=== PATIENT | male | born 1935 | race Caucasian/White ===

== ENCOUNTER 2016-12-09 13:58 | Outpatient (CLI) | payer MEDICARE, OTHER ==
[2016-12-09 16:00] LABS: HEMOGLOBIN A1C 0.54 g/dL
== END 2016-12-09 23:59 | disposition home or self-care (01) ==
LOC: LAB.R 13:58
PROVIDERS: ATTEND Family Medicine
DX: E11.9 Type 2 diabetes mellitus without complications (principal)
CPT/HCPCS: 83036

== ENCOUNTER 2017-07-28 11:43 | Outpatient (CLI) | payer MEDICARE, OTHER ==
--- NOTE | 2017-07-28 18:39 | CONSULTATION NOTE ---
Palliative Care Consultation - Referral Referring Provider: Dr. Samayoa Time of Visit: [id number] Referral setting: [facility] [place] Referral Reason: Goals of Care/Met. Lung cancer - Information Sources Records reviewed: RN notes reviewed, Previous records reviewed History/Review of Systems obtained from: Patient, Family ( Judith Walter present ) Exam limitations: Clinical condition (patient with short term memory issues; but able to participate in conversation) - History of Present Illness Brief History of Present Illness: This is a robert 82-year-old gentleman with metastatic colon cancer involving the liver and the lungs. He was diagnosed in August 2015, after undergoing a colonoscopy for rectal bleeding noted in the fall 2014. He did receive surgery for an ascending colon mass, and has been on chemotherapy. He was also treated with Y90 to the right hepatic lobe in April 2017. Unfortunately his last CT scan shows disease progression both in the lungs, and suspected progression in the liver. He does present with some abdominal distention, and some increased lower extremity edema, suspected attributed to his liver metastasis. He is on Coumadin therapy for a left arm DVT diagnosed in 05/2016, and his warfarin today is on hold because of high INR. He has had increased weakness, difficulty tolerating activity, increased shortness of breath with activity as well. Reports a cough, but of clear phlegm , he denies any fever or chills though his white count has come back today at 19.5. There is some increase in his cough and he does have some diminished breath sounds in his right lower lobe. He did receive his new chemotherapy regimen, is her oral pills, after reading the side effects and also given his current decline, patient is weighing benefits and burdens of proceeding with treatment. Judith Walter is present at the visit, she is quite anxious as far as his impending decline, and navigating the landscape with his 7 children Medical/Surgical History - Past Medical History Cardiovascular: reports: Hypertension, High cholesterol, Deep vein thrombosis ( left upper arm), Other (has portacath) Respiratory: reports: Shortness of breath, Other (pulmonary mets) Neuro: reports: None Endocrine/Autoimmune: reports: Type 2 diabetes GI: reports: Other (colon cancer) : reports: Benign prostate hypertrophy HEENT: reports: None Psych: reports: Depression Musculoskeletal: reports: Fatigue Derm: reports: None MRSA Hx?: No - Past Surgical History General: reports: Bowel surgery (colon cancer), Colonoscopy, Other (Korey-Cath placement) - Substance History Use: Uses substance without health or social issues: Tobacco (former smoker), Alcohol (none) Social History - Living Situation Living arrangement: At home Living Situation: With spouse/s.o. Support System: Patient lives with his Judith Walter, they have been for 36 years. She has 1 daughter, and he has 7 children with multiple grandchildren and great- grandchildren. 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 He is to be a avid fisherman and Danny. Family History - Family History Family History: Mother: (father aneurysm age 51;mother of old age), CAD, Father: , Sister: , Brother: Family History Comment/Other: sister of breast cancer; another sister of complications from diabetes ; brother and sister of leukemia, borhter of CHF; has one sister alive Medications/Allergies - Medications Home Medications: Ambulatory Orders Medication Instructions Recorded Confirmed Insulin Glargine,Hum.rec.anlog 10 units SQ DAILY 09/01/15 07/29/17 [Lantus Solostar] Chlorpheniramine Maleate 4 mg PO ONCE PRN 10/13/15 07/15/17 [Chlorhist] LORazepam [Ativan] 0.5 mg PO Q6H PRN 10/13/15 07/29/17 Ondansetron [Ondansetron Odt] 4 mg PO Q4HR PRN 10/13/15 07/29/17 Prochlorperazine Maleate 10 mg PO Q6HR PRN 10/13/15 07/29/17 [Compazine] Escitalopram [Lexapro] 10 mg PO DAILY 01/16/16 07/29/17 Lidocaine HCl [Lidocaine HCl 1 tsp PO QID 03/26/16 07/29/17 Viscous] Felodipine [Felodipine ER] 10 mg PO DAILY 05/21/16 07/29/17 Losartan [Cozaar] 100 mg PO DAILY 05/21/16 07/29/17 Warfarin [Coumadin] 2.5 mg PO .ON HOLD 04/01/17 07/29/17 Regorafenib [Stivarga] 160 mg PO .NOT STARTED YET MDD 3 07/25/17 07/29/17 weeks on, 1 week off - Allergies Allergies/Adverse Reactions: Allergies Allergy/AdvReac Type Severity Reaction Status Date / Time adhesive tape Allergy Rash Verified 04/01/17 11:26 rosuvastatin calcium * Allergy Rash Verified 04/01/17 11:26 [From Crestor] simvastatin [From Zocor] Allergy Rash Verified 04/01/17 11:26 Review of Systems - Constitutional Constitutional: reports: Fatigue, Weakness, Weight loss (06/16 191) - Eyes Eyes: reports: Vision loss, Corrective lenses - Ears, Nose & Throat Ears, Nose & Throat: reports: Dry mouth - Cardiovascular Cardiovascular: reports: Exertional dyspnea, Decr. exercise tolerance. denies: Chest pain - Respiratory Respiratory: reports: Cough, Sputum production (clear), SOB with exertion - Gastrointestinal Gastrointestinal: reports: Abdominal distention, Good appetite. denies: Constipation, Diarrhea - Genitourinary Genitourinary: denies: Incontinence - Musculoskeletal Musculoskeletal: reports: Muscle weakness, Assistive devices (using rolling walker) - Integumentary Integumentary: reports: Dryness - Neurological Neurological: reports: General weakness, Memory problems, Other (peripheral neuropathy hands/feet) - Psychiatric Psychiatric: denies: Anxiety - Endocrine Endocrine: reports: Diabetes type 2 - Hematologic/Lymphatic Hematologic/Lymphatic: reports: Anemia (hct 33.1; hgb 11.0) - All Other Systems All Other Systems: reports: Reviewed and negative Physical Exam - Vital Signs Temperature: 37 C Pulse Rate: 79 Respiratory Rate: 20 Blood Pressure: 122/74 - Physical Exam General Appearance: positive: No acute distress, Alert Eyes Bilateral: positive: Normal inspection, No scleral icterus ENT: positive: ENT inspection nml Neck: positive: No JVD, Trachea midline Cardiovascular: positive: Regular rate & rhythm Respiratory: positive: Other (diminished right lower lobe). negative: Wheezes, Rales, Rhonchi Abdomen: positive: Soft, Nml bowel sounds, Distended. negative: Taut Skin: positive: Other (color sallow;) Extremities: positive: Pedal edema (new symptom for patient; 1-2 plus feet/ ankles) Neurologic/Psychiatric: positive: Oriented x3 Palliative Care - POLST Patient has POLST: No Pain: Pain worsening, Comment (Reports some pain and discomfort in his left upper thoracic area, this is intermittent comes and goes, reports mild intermittent pain on the right upper thoracic and abdominal area again this comes and goes not consistent.Not requiring any medication.) Tiredness/Fatigue: Severe (7-10) Drowsiness/Sedation: Mild (1-3) Nausea: None Depression: Mild (1-3) Anxiety: None Dyspnea: Moderate (4-6) Anorexia: Mild (1-3) Sleep: Variable sleep pattern Constipation: No Feelings of wellbeing/Perceived Quality of Life: Fair, Worsening Performance Status: Patient getting weaker at home, less able to participate in household tasks, has been sources of his time sitting in recliner. Does get breathless and also weak with any increased activity. provides standby assist for bathing. Is worried about the future as he becomes more difficult, and needing more assistance, she is in her 80s as well. I would put him at a PPS currently at 50 % - Palliative Care Discussion: Both patient's and 's understanding is that patient's disease is getting towards the end of his trajectory. Patient himself is weighing benefits and burdens of further treatment, given the context he is continued to be quite weak and worried about impacting further his quality of life. Has read through the medications for the [facility], and wondering about the further impact on him in the context of returns. They do have a the POA which is putting Judith Walter as the primary, but his nephew as a secondary. As she is meeting with his son Yobany this Friday, and is hoping to update this, form was given. He does want to be a DNA R, we did discuss the role of the [facility], and the implications regarding this. Also in his goals of care, we did discuss the spectrum of care including the continuum to include hospice. I have given him some information, they will also review this with his son, Judith Walter does feel somewhat at distress as he does have 7 children and she often is the buffer between them. She is recognizing though they are going to need increased help, and will benefit from ongoing support from palliative care Results - Lab Results Lab results reviewed: Yes Lab and Imaging Results: WBC 19.5; CEA up to 1783 from 07/14 1205 Impression and Recommendations - Palliative Care Impression: This is a robert 82-year-old gentleman who presents with metastatic colon cancer with metastases to the lungs and liver. He does present with increased abdominal distention, lower extremity edema, and progressive fatigue. He has increase activity intolerance, cough, shortness of breath, and now presents with an elevated white count, will arrange for chest x-ray to rule out concerns for possible infection. In the context of presenting with advanced disease, is weighing benefits and burdens of proceeding further with treatment, or needing assistance for advanced care planning and defining goals of care Recommendations/Counseling Done: 1.Dyspnea. Patient presents with decreased activity tolerance, increased cough of clear phlegm, increased shortness of breath with any kind of activity. In the context of his elevated white count, order for chest x-ray was done. Unfortunately the ER is quite busy and patient has appointment for pro time, did not want to wait the greater than 1 hour, and mAPPn x-ray tech called in sick. They have been notified if he has increased shortness of breath fever chills to report to the ED, otherwise he will come early tomorrow to get chest x -ray for follow-up either with myself or oncologist. 2. Fatigue, this is multifactorial in origin. He does present with functional decline, is sleeping more, most likely includes progressive disease symptoms. He is eating and drinking, but recognizing his decline. Instructed to pace activities, concerned about fall precautions that he is using the 4 wheeled front wheel walker. 3. Lower extremity edema, looking at increasing bilirubin and liver function tests suspect related to progressive liver metastases. At this point in time is not causing him undue distress, but is further symptoms of progressive disease. Patient already with elevated INR, will need to be closely monitored regarding progressive liver disease and new chemotherapeutic oral agent 4. Advanced care planning. Judith Walter and patient will follow up with his son this Friday regarding designating follow-up DPOA, form given and instructions reviewed. Also introduce the [facility] in the context of his goals with DNA R, discuss hiring help for current functional and future decline for personal care needs, as well as introduced hospice in the continuum of care. Patient struggling regarding moving forward with oral chemotherapy versus supportive care, will be meeting with oncologist tomorrow. We did discuss could start treatment, and continue to weigh the benefits and burdens given on the outcome of side effects. Time Spent: 60 minutes with greater than 50% of this done in counseling coordination of care , provided anticipatory guidance, as well as introduced advanced care planning, follow-up on chest x-ray.
== END 2017-07-28 11:44 | disposition home or self-care (01) ==
LOC: PC 11:43
PROVIDERS: ATTEND Nurse Practitioner Adult Health
DX: Z51.5 Encounter for palliative care (principal); R06.02 Shortness of breath; R53.83 Other fatigue; R60.0 Localized edema; C18.9 Malignant neoplasm of colon, unspecified; C78.7 Secondary malignant neoplasm of liver and intrahepatic bile duct; C78.02 Secondary malignant neoplasm of left lung; C78.01 Secondary malignant neoplasm of right lung; R14.0 Abdominal distension (gaseous); R05 Cough; M62.81 Muscle weakness (generalized); I10 Essential (primary) hypertension; E11.9 Type 2 diabetes mellitus without complications; Z79.4 Long term (current) use of insulin; Z86.718 Personal history of other venous thrombosis and embolism; Z79.01 Long term (current) use of anticoagulants; Z95.828 Presence of other vascular implants and grafts; Z87.891 Personal history of nicotine dependence; Z79.899 Other long term (current) drug therapy
CPT/HCPCS: 99205

== ENCOUNTER 2017-07-29 11:51 | Outpatient (CLI) | payer MEDICARE, OTHER ==
--- NOTE | 2017-07-29 19:33 | XRAY Report ---
DATE OF SERVICE: 07/29/2017 TWO VIEW CHEST: 07/29/2017 CLINICAL INDICATION: Shortness of breath, known pulmonary metastatic disease. COMPARISON: CT 05/12/2017. Frontal and lateral views of the chest demonstrate a normal cardiac silhouette. Left subclavian port is stable. There has been progression of pulmonary metastatic disease, with the largest single lesion, in the left mid lung, now measuring 3.8 cm. Multiple new nodules are also present compared with CT. Trace effusions are present. No focal infiltrate or pneumothorax is appreciated. IMPRESSION: Progression of pulmonary metastatic disease. Trace pleural effusions. No evidence of infiltrate. TD: 07/29/2017 20:26
== END 2017-07-29 11:52 | disposition home or self-care (01) ==
LOC: DI 11:51
PROVIDERS: ATTEND Nurse Practitioner Adult Health
DX: C78.02 Secondary malignant neoplasm of left lung (principal)
CPT/HCPCS: 71046